=== PATIENT | female | born 1995 | race Caucasian/White ===

== ENCOUNTER → 2017-08-13 | Outpatient (CLI) | payer BC ==
--- NOTE | 2017-08-13 07:36 | US ---
EXAMINATION TYPE: US thyroid st tissue head/neck DATE OF EXAM: 08/13/2017 COMPARISON: NONE CLINICAL HISTORY: E01.0 THYROID ENLARGEMENT. Thyroid enlarged per doctor MEASUREMENTS: GLAND SIZE: Right Lobe: 5.1 x 2.1 x 2.0 cm Left Lobe: 4.9 x 2.4 x 2.0 cm Isthmus Thickness: 0.5 cm NODULES RIGHT: # of nodules measured on right: 0 LEFT: # of nodules measured on left:0 ISTHMUS: # of nodules measured within isthmus:0 Bilateral neck scanned, no evidence of lymphadenopathy. Bilateral thyroid lobes appear enlarged, heterogenous and hypervascular with no prominent masses or l esions seen. IMPRESSION: Heterogeneous hypervascular mildly enlarged thyroid without discrete nodule.
== END | disposition home or self-care (01) ==
LOC: RADUSWWP 07:01
PROVIDERS: ATTEND Obstetrics & Gynecology
DX: E04.9 Nontoxic goiter, unspecified (principal)
CPT/HCPCS: 76536

== ENCOUNTER 2018-01-06 22:02 | Inpatient (IN) | payer BC ==
[2018-01-06 22:49] LABS: Basophils % (A) 0 %; Eosinophils # (A) 0.1 k/uL (0-0.7); Eosinophils % (A) 1 %; HCT 33.2 % (34.0-46.0); HGB 11.3 gm/dL (11.4-16.0); Lymphocytes # (A) 1.8 k/uL (1.0-4.8); Lymphocytes % (A) 14 %; MCH 28.5 pg (25.0-35.0); MCV 83.9 fL (80.0-100.0); Mean Platelet Volume 8.1; Monocytes # (A) 0.5 k/uL (0-1.0); Monocytes % (A) 4 %; Neutrophils # (A) 10.3 k/uL (1.3-7.7); Neutrophils % (A) 80 %; Platelet Count 230 k/uL (150-450); Poikilocytosis Slight; RBC 3.95 m/uL (3.80-5.40); RDW 13.7 % (11.5-15.5)
[2018-01-06] MEDS ORDERED: ceFAZolin IN SWFI 2 GM/20 ML SYRINGE IVP ONE (23:03)
[2018-01-06] MEDS ORDERED: CITRIC ACID-SODIUM CITRATE 15 ML CUP PO ONE (23:03)
[2018-01-06] MEDS ORDERED: NALBUPHINE 10 MG/ML VIAL (10ML MDV) ONE (23:08)
[2018-01-06] MEDS ORDERED: ONDANSETRON 4 MG/2 ML VIAL ONE (23:08)
[2018-01-06] MEDS ORDERED: MORPHINE SULFATE (PF) 0.3 MG/0.3 ML SYR ONE (23:08)
[2018-01-06] MEDS ORDERED: KETOROLAC 30 MG/ML 1 ML VIAL ONE (23:08)
[2018-01-06] MEDS ORDERED: PHENYLEPHRINE-0.9% NACL SYG 1 MG/10 ML SYRINGE ONE (23:08)
[2018-01-06] MEDS ORDERED: DEXAMETHASONE SOD PHOS (MDV) 100 MG/10 ML VIAL ONE (23:08)
[2018-01-06] MEDS ORDERED: OXYTOCIN 10 UNIT/ML 1 ML VIAL ONE (23:08)
[2018-01-06] MEDS: LACTATED RINGERS 1,000 ML IV SCH (23:15)
[2018-01-06] MEDS ORDERED: diphenhydrAMINE 50 MG/ML 1 ML VIAL IVP PRN ×3 (23:35→23:56)
[2018-01-06] MEDS ORDERED: MORPHINE SULFATE 2 MG/ML SYRINGE IVP PRN (23:35)
[2018-01-06] MEDS ORDERED: NALOXONE 0.4 MG/ML 1 ML VIAL IV PRN (23:35)
[2018-01-06] MEDS ORDERED: ONDANSETRON 4 MG/2 ML VIAL IVP PRN (23:35)
[2018-01-06] MEDS ORDERED: OXYTOCIN 20 UNITS/1000 ML NS 1,000 ML IV SCH (23:45)
[2018-01-06] MEDS ORDERED: SIMETHICONE 80 MG CHEWABLE PO PRN (23:56)
[2018-01-06] MEDS ORDERED: diphenhydrAMINE 25 MG CAP PO PRN (23:56)
[2018-01-06] MEDS ORDERED: ZOLPIDEM 5 MG TAB PO PRN (23:56)
[2018-01-06] MEDS ORDERED: ACETAMINOPHEN TAB 325 MG TAB PO PRN (23:56)
[2018-01-06] MEDS ORDERED: LANOLIN CREAM 5 GM TUBE TOPICAL PRN (23:56)
[2018-01-06] MEDS ORDERED: METOCLOPRAMIDE 5 MG/ML 2 ML VIAL IVP PRN (23:56)
[2018-01-06] MEDS ORDERED: diphenhydrAMINE 50 MG CAP PO PRN (23:56)
--- NOTE | 2018-01-07 00:07 | P.HPOB ---
History of Present Illness H&P Date: 01/06/18 Chief Complaint: decreased movement 22 year old presents to triage at 34 weeks complaining of 1 day of decreased movement. She has only felt the baby move slightly all day today though he was moving normally yesterday. She is not jett and in no pain. No bleeding or loss of fluid. heart tones on the monitor read 130 and minimal variability but when listening it sounds much faster like in the 260's. I put the handheld ultrasound on the baby and saw the heart beating very quickly in the 260's. I discussed R/B/A of section with pt and her including risks of delivering a infant. Pt and her expressed understanding and consented to section. Review of Systems All systems: negative Constitutional: Denies chills, Denies fever Eyes: denies blurred vision, denies pain Ears, nose, mouth and throat: Denies headache, Denies sore throat Cardiovascular: Denies chest pain, Denies shortness of breath Respiratory: Denies cough Gastrointestinal: Denies abdominal pain, Denies diarrhea, Denies nausea, Denies vomiting Genitourinary: Denies dysuria, Denies hematuria Musculoskeletal: Denies myalgias Integumentary: Denies pruritus, Denies rash Neurological: Denies numbness, Denies weakness Psychiatric: Denies anxiety, Denies depression Endocrine: Denies fatigue, Denies weight change Past Medical History Past Medical History: Thyroid Disorder (goiter; no meds) Additional Past Medical History / Comment(s): ob history: this is her first and she had care with Dr Salinas. A+, abs neg. normal 1hr. uncomplicated . She was diagnosed with a goiter, we were watching her thyroid levels but she remained euthyroid, last checked at 28 weeks. History of Any Multi-Drug Resistant Organisms: None Reported Past Surgical History: No Surgical Hx Reported Smoking Status: Never smoker Medications and Allergies Home Medications Medication Instructions Recorded Confirmed Type Pnv,Calcium 72/Iron/Folic Acid 1 tab PO ONCE 01/06/18 01/06/18 History [ Plus Tablet] Allergies Allergy/AdvReac Type Severity Reaction Status Date / Time No Known Allergies Allergy Verified 01/06/18 22:12 Exam Osteopathic Statement: *. No significant issues noted on an osteopathic structural exam other than those noted in the History and Physical/Consult. Vital Signs Pulse Resp BP Pulse Ox 01/06/18 22:21 116 H 16 117/70 99 Intake and Output 01/06/18 01/06/18 01/07/18 14:59 22:59 06:59 Other: Weight 78.925 kg HEart: RRR Lungs: CTAB ABdomen: soft, nontender Extremties: neg josué's Results Result Diagrams: 01/06/18 22:35 Abnormal Lab Results - Last 24 Hours (Table) 01/06/18 Range/Units 22:35 WBC 13.0 H (3.8-10.6) k/uL Hgb 11.3 L (11.4-16.0) gm/dL Hct 33.2 L (34.0-46.0) % Neutrophils # 10.3 H (1.3-7.7) k/uL Assessment and Plan (1) Decreased movement Current Visit: Yes Status: Acute Code(s): O36.8190 - DECREASED MOVEMENTS, UNSP TRIMESTER, UNSP SNOMED Code(s): 274022055 (2) tachycardia affecting management of mother Current Visit: Yes Status: Acute Code(s): O76 - ABNLT IN HEART RATE AND RHYTHM COMP LABOR AND DELIVERY SNOMED Code(s): 6161626 Plan: 1. primary low transverse
[2018-01-07 00:12] VITALS: BMI 27.2
--- NOTE | 2018-01-07 00:15 | P.OP ---
Date of Procedure: 01/06/18 Preoperative Diagnosis: 1. at 34 weeks 2. Decreased Movement 3. tachycardia Postoperative Diagnosis: same Procedure(s) Performed: primary low transverse Anesthesia: spinal Surgeon: Shwetha Brooks Rotary Derrick Operator #1: Carlos A Bryant Estimated Blood Loss (ml): 800 IV fluids (ml): 500 Urine output (ml): 400 Pathology: other (placenta) Condition: stable Disposition: floor Indications for Procedure: 22 year old presented with decreased movement for 1 day to triage. heart tones were found to be tachycardic at 260 despite position changes and IV fluids. Informed consent was obtained for section. Operative Findings: viable male, Apgars pending; weight pending Description of Procedure: Patient was taken to the operating room where spinal anesthesia was found be adequate. She was prepped and draped in normal sterile fashion in dorsal supine position with a leftward tilt. Pfannenstiel skin incision was made the scalpel and carried through to the underlying layer of fascia with the scalpel. Fascia was incised in midline and carried bilaterally with the Holden scissors. The superior aspect of the fascial incision was grasped with Collbran clamps elevated and the underlying rectus muscles dissected off with the Holden's. Attention was then turned to inferior aspect of same incision which in a similar fashion was grasped tented up and the underlying rectus muscles dissected off with the Holden's. The rectus muscles were the midline and the peritoneum was identified tented up and entered sharply with the scalpel. The incision was extended superiorly and inferiorly with good visualization of the bladder. The bladder blade was inserted and the vesicouterine peritoneum was incised the Metzenbaums then carried bilaterally and bladder flap created digitally. A low transverse incision was then made on the uterus with the scalpel. This was carried bilaterally and digital manner. Infant's head delivered atraumatically, nose and mouth bulb suctioned, cord clamped and cut, handed off to waiting nurses. Apgars pending,weight pending. Placenta delivered manually, intact with three-vessel cord. The uterus is exteriorized and cleared of all clots and debris. The uterine incision was closed with 0 Vicryl in a running locked fashion. Second layer of the same sutures used in imbricating fashion to obtain excellent hemostasis. Bladder flap was then reapproximated using 2-0 Vicryl in a running fashion. Both ovaries and tubes appeared normal. The uterus was placed back into the abdomen. The peritoneum was reapproximated using 2-0 Vicryl in a running fashion. The muscles were reapproximated using 2-0 Vicryl in interrupted fashion. The fascia was reapproximated using 0 Vicryl in a running fashion. The subcutaneous tissues closed with 3-0 Vicryl running fashion. The skin was closed funmilayo. Patient tolerated the procedure well, sponge and instrument counts were correct times 2 and she was taken to the recovery room in stable condition.
--- NOTE | 2018-01-07 00:18 | P.MSEPDOC ---
Presenting Problems - Arrival Data Date of Arrival on Unit: 01/06/18 Time of Arrival on Unit: 22:00 Mode of Transport: Ambulatory Medical History - Information : 1 Para: 0 Term: 0 : 0 Abortions: Spontaneous or Elective: 0 Number of Living Children: 0 - Gestational Age Gestational Age by SONDRA (wks/days): 34 Weeks and 0 Days Review of Systems - Review of Systems Constitutional: No problems Breast: No problems ENT: No problems Cardiovascular: No problems Respiratory: No problems Gastrointestinal: No problems Genitourinary: No problems Musculoskeletal: No problems Neurological: No problems Skin: No problems Vital Signs - Temperature Temperature: 97.8 F Temperature Source: Oral - Pulse Right Brachial Pulse Rate: 95 Pulse Assessment Method: Automatic Cuff - Respirations Respiratory Rate: 18 Oxygen Delivery Method: Room Air O2 Sat by Pulse Oximetry: 100 - Blood Pressure Right Arm Blood Pressure: 95/54 Blood Pressure Mean: 67 Blood Pressure Source: Automatic Cuff Medical Screen Scoring (Pre) - Cervical Exam Dilation: Exam Deferred Effacement: Exam Deferred Membranes: Intact - Maternal Vital Signs Maternal Temperature: N/A Maternal Blood Pressure: N/A Signs of Preeclampsia: N/A Maternal Respirations: N/A - Pain Assessment Pain Scale Used: Numeric (1 - 10) Pain Intensity: 0 - Assessment Baseline FHR: 130 Heart Rate - NICHD Category: Category II (Indeterminate) = 3 NST: Non-reactive = 3 Position: N/A Station: N/A - Total Score Total Score (Pre): 6 I agree with the RN Medical Screening Exam: Yes Risk & Benefit of care provided described in d/c instruction: Yes Diagnosis: ABNLT IN HEART RATE AND RHYTHM COMP LABOR AND DELIVERY
[2018-01-07] MEDS: KETOROLAC 30 MG/ML 1 ML VIAL IVP PRN ×3 (08:03→21:51)
[2018-01-07] MEDS: SENNOSIDES-DOCUSATE SODIUM 1 EACH TAB PO SCH (08:04)
--- NOTE | 2018-01-07 08:41 | P.PN ---
Progress Note - Text Progress Note Date: 01/07/18 22-year-old female status post section postop day 1. Patient had Duramorph spinal. Today patient states that pain is a 3/10 in severity, acknowledges mild pruritus and facial area. No motor weakness no sensory deficits appreciated in the lower extremities, mild back discomfort, but overall doing well. Encourage her to ambulate as much as possible. Patient still for discharge home from an anesthetic perspective
[2018-01-07 09:53] LABS: Basophils % (A) 0 %; Eosinophils % (A) 0 %; HCT 28.9 % (34.0-46.0); Lymphocytes # (A) 1.3 k/uL (1.0-4.8); Lymphocytes % (A) 7 %; MCH 27.6 pg (25.0-35.0); MCHC 33.3 g/dL (31.0-37.0); MCV 82.9 fL (80.0-100.0); Mean Platelet Volume 8.6; Monocytes # (A) 0.9 k/uL (0-1.0); Monocytes % (A) 5 %; Neutrophils # (A) 16.4 k/uL (1.3-7.7); Neutrophils % (A) 88 %; Platelet Count 225 k/uL (150-450); Poikilocytosis Slight; RBC 3.48 m/uL (3.80-5.40); RDW 13.5 % (11.5-15.5); WBC 18.7 k/uL (3.8-10.6)
[2018-01-07 09:57] LABS: HGB 9.6 gm/dL (11.4-16.0)
[2018-01-07] MEDS: LACTATED RINGERS 1,000 ML IV SCH (14:28)
[2018-01-08] MEDS ORDERED: diphenhydrAMINE 50 MG/ML 1 ML VIAL ONE (01:30)
[2018-01-08 05:45] LABS: Basophils % (A) 0 %; Eosinophils # (A) 0.1 k/uL (0-0.7); Eosinophils % (A) 1 %; HCT 27.7 % (34.0-46.0); HGB 9.2 gm/dL (11.4-16.0); Lymphocytes # (A) 2.3 k/uL (1.0-4.8); Lymphocytes % (A) 24 %; MCH 28.1 pg (25.0-35.0); MCHC 33.2 g/dL (31.0-37.0); MCV 84.4 fL (80.0-100.0); Mean Platelet Volume 9.9; Monocytes # (A) 0.6 k/uL (0-1.0); Monocytes % (A) 6 %; Neutrophils # (A) 6.8 k/uL (1.3-7.7); Neutrophils % (A) 69 %; Platelet Count 176 k/uL (150-450); Poikilocytosis Slight; RBC 3.29 m/uL (3.80-5.40); RDW 13.8 % (11.5-15.5)
[2018-01-08] MEDS: IBUPROFEN 600 MG TAB PO PRN ×3 (06:12→20:52)
[2018-01-08] MEDS: HYDROcodone/APAP 7.5-325MG 1 EACH TAB PO PRN ×3 (08:53→22:59)
[2018-01-08] MEDS: SENNOSIDES-DOCUSATE SODIUM 1 EACH TAB PO SCH ×3 (09:24→20:51)
[2018-01-08] MEDS: LACTATED RINGERS 1,000 ML IV SCH ×11 (10:06→17:31)
--- NOTE | 2018-01-08 12:45 | P.PNOBGPC ---
Subjective - Subjective Principal diagnosis: Postop day 2 Interval history: Patient is seen and evaluated, she continues to have some dark red oozing from her incision or the midline. Is not coming out in any large quantities and therefore we'll debris apply a pressure bandage and see if we can get the bleeding to stop without having any other therapies. Overall her spirits are relatively good with her baby deep being at [facility]. She is able to ambulate, void and she is tolerating her diet. At this time she voices no other complaints. We'll make every effort to try and get her stable for discharge as soon as possible but she is aware she continues to have issues with her incision we may need to keep her longer. All the questions are answered for her at this time. Patient reports: Reports appetite normal, Reports voiding normally, Reports pain well controlled, Reports ambulating normally Objective - Vital Signs Latest vital signs: Vital Signs Temp Pulse Resp BP Pulse Ox 01/08/18 10:00 18 01/08/18 08:00 98.1 F 89 16 100/63 98 01/08/18 06:00 16 01/08/18 04:00 16 01/08/18 02:00 16 01/07/18 22:00 17 01/07/18 20:00 89 16 107/69 99 01/07/18 15:41 98.9 F 86 16 106/61 01/07/18 14:00 16 Intake and Output 01/07/18 01/08/18 01/08/18 22:59 06:59 14:59 Output Total 1150 Balance -1150 Output: Urine 1150 Other: # Voids 1 - Exam Lungs: bilateral: normal Chest: Normal S1, Normal S2 Extremities: Present: normal Abdomen: Present: normal appearance, soft. Absent: distention, tenderness Incision: Present: other (Small amount of bleeding from the center of incision) Uterus: Present: firm - Labs Labs: Abnormal Lab Results - Last 24 Hours (Table) 01/08/18 Range/Units 05:28 RBC 3.29 L (3.80-5.40) m/uL Hgb 9.2 L (11.4-16.0) gm/dL Hct 27.7 L (34.0-46.0) %
[2018-01-08 18:15] LABS: INR 0.9 (<1.2); Partial Thromboplastin Time 22.7 sec (22.0-30.0); Prothrombin Time 9.4 sec (9.0-12.0)
--- NOTE | 2018-01-08 19:41 | P.PN ---
Progress Note - Text Progress Note Date: 01/08/18 Sirisha is seen and evaluated again this evening. I was called to evaluate her as her incision has more bleeding. There is minimal active bleeding however she continues to form approximate 3 cm clot over her incision line of with bright red blood. This occurs over the course of anywhere from 40 1:55 hours and it is more disconcerting to her than problematic. There is no active flow of bleeding when we take the dressing off there is no pulsation of blood there is no significant quantity of blood coming through the incision line but she continues to have this slightly more than losing of her incision. We did discuss the possibility of going to surgery and removing the funmilayo to evaluate and see if we can figure out where the bleeding is coming from exactly and reclosed wound, she is not very interested in this at this time which is very understandable but other than applying heavy pressure dressing I'm at a loss cystoscopy what else we can really do because we cannot really identify her see where the blood is coming from in 1 week take the dressing off there is no significant amount of bleeding that is coming between the staple lines. I did readdress the incision and applied firm pressure dressing to try and obtain hemostasis. She is overall stable at this time.
[2018-01-09] MEDS: IBUPROFEN 600 MG TAB PO PRN ×2 (04:45→11:02)
[2018-01-09] MEDS: HYDROcodone/APAP 7.5-325MG 1 EACH TAB PO PRN ×2 (07:53→14:47)
[2018-01-09] MEDS: SENNOSIDES-DOCUSATE SODIUM 1 EACH TAB PO SCH (07:53)
[2018-01-09 08:16] VITALS: BP 103/69; PULSE 85; RESP 16; TEMP 97.9
--- NOTE | 2018-01-09 09:33 | P.DS ---
Providers Date of admission: 01/06/18 23:10 Expected date of discharge: 01/09/18 Attending physician: Ford Salinas Primary care physician: Stated None Hospital Course: Overall Sirisha is doing very well. She is ambulating and she is voiding. She tolerates her diet. Her incision which is been using for last 2-3 days since having section did not appear to ooze through the night, however there is a strong pressure dressing still in place. We'll plan to leave that in place and she will follow-up with me tomorrow morning with plan for removal and to evaluate for staple removal. I did warn her that she may need to have the funmilayo stay in place for a few more days as I'm concerned maybe a blood clot underneath the incision line which could result in her incision opening and may be safer just believed in funmilayo in place for a full week. Otherwise she is overall doing well. She would like to be discharged today so that she can go and see her baby at [facility]. Vital signs are stable and afebrile. Heart regular, lungs clear, extremities are without pain. Abdomen soft and she has bowel sounds. Assessment postop day 3. Plan discharged home follow up with me tomorrow morning. Patient Condition at Discharge: Good Plan - Discharge Summary New Discharge Prescriptions: New HYDROcodone/APAP 7.5-325MG [Edelstein 7.5-325] 1 tab PO Q4H PRN 3 Days #18 tab PRN Reason: Pain Ibuprofen [Motrin] 600 mg PO Q6HR PRN #30 tab PRN Reason: Mild Pain Or Fever >= 100.5 No Action Pnv,Calcium 72/Iron/Folic Acid [ Plus Tablet] 1 tab PO ONCE Discharge Medication List Pnv,Calcium 72/Iron/Folic Acid [ Plus Tablet] 1 tab PO ONCE 01/06/18 [ History] HYDROcodone/APAP 7.5-325MG [Edelstein 7.5-325] 1 tab PO Q4H PRN 3 Days #18 tab 01/07 [Rx] Ibuprofen [Motrin] 600 mg PO Q6HR PRN #30 tab 01/07/18 [Rx] Follow up Appointment(s)/Referral(s): Ford Salinas DO [Doctor of Osteopathic Medicine] - 01/09/18 Activity/Diet/Wound Care/Special Instructions: No heavy lifting, limit stairs and driving and pelvic rest. If any high temperatures, heavy bleeding, or severe pain call my office Discharge Disposition: HOME SELF-CARE
== END 2018-01-09 15:24 | disposition home or self-care (01) | DRG 765 ==
LOC: FBPOP 22:02 → 4FBP 23:10
PROVIDERS: ADMIT Obstetrics & Gynecology; ATTEND Obstetrics & Gynecology
PROC: 10D00Z1 Extraction of Products of Conception, Low, Open Approach (ICD-10-PCS; principal; 2018-01-07)
DX: O36.8130 Decreased fetal movements, third trimester, not applicable or unspecified (principal); L76.22 Postprocedural hemorrhage of skin and subcutaneous tissue following other procedure; Z3A.34 34 weeks gestation of pregnancy; Z37.0 Single live birth; O76 Abnormality in fetal heart rate and rhythm complicating labor and delivery; L29.9 Pruritus, unspecified
CPT/HCPCS: 59025; 84443; 85025; 85610; 85730; 88307; 96360; 99213

== ENCOUNTER → 2018-08-19 | Outpatient (CLI) | payer BC ==
--- NOTE | 2018-08-19 10:09 | US ---
EXAMINATION TYPE: US thyroid st tissue head/neck DATE OF EXAM: 08/19/2018 COMPARISON: 08/13/2017 CLINICAL HISTORY: E04.9 GOITER. GLAND SIZE: Right Lobe: 5.6 x 2.2 x 2.3 cm Overall Parenchyma: heterogenous Left Lobe: 5.6 x 2.2 x 2.5 cm Overall Parenchyma: heterogeneous Isthmus Thickness: 0.5 cm NODULES RIGHT: # of nodules measured on right: 0 LEFT: # of nodules measured on left: 0 ISTHMUS: # of nodules measured in the isthmus: 0 Bilateral enlarged, diffusely heterogeneous and hypervascular thyroid lobes. Bilateral neck scanned, no evidence of lymphadenopathy. IMPRESSION: Enlarged and diffusely hypervascular heterogenous thyroid gland. Lymphocytic infiltration in chronic thyroiditis should be considered. Thank you
== END | disposition home or self-care (01) ==
LOC: RADUSWWP 06:55
PROVIDERS: ATTEND Family Medicine
DX: E06.3 Autoimmune thyroiditis (principal); E04.9 Nontoxic goiter, unspecified
CPT/HCPCS: 76536

== ENCOUNTER 2019-01-29 15:11 | Emergency (ER) | payer BC ==
[2019-01-29 16:15] LABS: Basophils % (A) 0 %; Eosinophils # (A) 0.1 k/uL (0-0.7); Eosinophils % (A) 1 %; HCT 40.3 % (34.0-46.0); Lymphocytes # (A) 0.6 k/uL (1.0-4.8); Lymphocytes % (A) 6 %; MCH 27.2 pg (25.0-35.0); MCHC 32.2 g/dL (31.0-37.0); MCV 84.4 fL (80.0-100.0); Mean Platelet Volume 8.2; Monocytes # (A) 0.3 k/uL (0-1.0); Monocytes % (A) 3 %; Neutrophils # (A) 8.3 k/uL (1.3-7.7); Neutrophils % (A) 89 %; Platelet Count 171 k/uL (150-450); RBC 4.78 m/uL (3.80-5.40); RDW 13.8 % (11.5-15.5); WBC 9.3 k/uL (3.8-10.6)
[2019-01-29 16:23] LABS: ALT 12 U/L (9-52); AST 25 U/L (14-36); African American GFR (CKD) >90 (>60 ml/min/1.73 sqM); Albumin 4.4 g/dL (3.5-5.0); Alkaline Phosphatase 46 U/L (38-126); Anion Gap 12 mmol/L; Blood Urea Nitrogen 9 mg/dL (7-17); Carbon Dioxide 20 mmol/L (22-30); Chloride 107 mmol/L (98-107); Creatine Kinase 72 U/L (30-135); Glucose 114 mg/dL (74-99); Magnesium 1.7 mg/dL (1.6-2.3); Non-African American GFR(CKD) >90 (>60 ml/min/1.73 sqM); Potassium 3.9 mmol/L (3.5-5.1); Sodium 139 mmol/L (137-145); Total Bilirubin 1.2 mg/dL (0.2-1.3)
[2019-01-29 16:24] LABS: Amorphous Sediment,Urine Rare /hpf; Appearance,Urine Clear (Clear); Bilirubin,Urine Negative (Negative); Blood,Urine Moderate (Negative); Color,Urine Yellow; Glucose,Urine (UA) Negative (Negative); Ketones,Urine Negative (Negative); Leukocyte Esterase,Urine Negative (Negative); Mucus,Urine Moderate /hpf; Nitrite,Urine Negative (Negative); PH, Urine 5.5 (5.0-8.0); Protein,Urine Negative (Negative); RBC,Urine 1 /hpf (0-5); Specific Gravity,Urine 1.007 (1.001-1.035); Squamous Epithelial Cell,Urine 3 /hpf (0-4); Urobilinogen,Urine <2.0 mg/dL (<2.0); WBC,Urine 1 /hpf (0-5)
[2019-01-29 16:35] LABS: Partial Thromboplastin Time 25.7 sec (22.0-30.0)
[2019-01-29 16:38] LABS: D-Dimer 1.27 mg/L FEU (<0.60)
--- NOTE | 2019-01-29 17:08 | XR ---
EXAMINATION: XR chest 2V DATE AND TIME: 01/29/2019 4:47 PM CLINICAL INDICATION: PHH; Chest Pain TECHNIQUE: Departmental protocol COMPARISON: None FINDINGS: The lungs are clear. The pleural spaces are negative. The cardiac silhouette is not enlarged. The remainder of the mediastinal silhouette is unremarkable. The skeletal structures and soft tissues are negative for acute findings. IMPRESSION: NO ACUTE PROCESS.
--- NOTE | 2019-01-29 18:21 | CT ---
EXAMINATION TYPE: CT angio chest with contrast and with 3-D reconstruction renderings DATE OF EXAM: 01/29/2019 5:32 PM COMPARISON: None HISTORY: Chest pressure, weakness. CT DLP: 245.9 mGycm Automated exposure control for dose reduction was used. CONTRAST: CTA scan of the thorax is performed with IV Contrast, patient injected with 77 mL of Isovue 370, pulmonary embolism protocol. Three-D reconstructions. FINDINGS: AIRWAYS / LUNGS: Clear and well expanded. PLEURAL SPACES: Negative. MEDIASTINUM/CINDI: Pulmonary arterial tree is well-opacified and is negative for filling defects to simeon ggest pulmonary embolism. There is no acute aortic pathology. No cardiomegaly or pericardial effusion . No adenopathy. SKELETAL STRUCTURES: No acute process. OTHER: 1) There is mild splenomegaly, with the spleen measuring approximately 14 x 13 x 7 cm. No focal lytic lesions. 2) 6 x 6 cm incompletely visualized LUQ soft tissue density between the stomach and the left kidney n oted. This finding could represent unopacified stomach and jejunal loops, its location adjacent to th e large spleen, and the fact that the bobbi hepatis is indistinct, leads to the request for abdominal pelvic CT imaging with oral contrast and 50 mL IV contrast. IMPRESSION: CHEST: No acute process. UPPER ABDOMEN: Splenomegaly, indistinct bobbi hepatis, and left upper quadrant soft tissue density as discussed.
[2019-01-29] MEDS ORDERED: IOPAMIDOL CONTRAST (ORAL USE) VIAL PO PRN (18:23)
--- NOTE | 2019-01-29 18:54 | ED ---
Chest Pain HPI - General Chief Complaint: Chest Pain Stated Complaint: Chest pressure, weakness Time Seen by Provider: 01/29/19 15:48 Source: patient Mode of arrival: wheelchair Limitations: no limitations - History of Present Illness Initial Comments: This is a 23-year-old female who presents with complaints of chest pain she also said her heart rate was elevated. She is not familiar with her being told that she had a elevated heart rate before. She denies any shortness of breath cough fevers chills nausea vomiting sweats does states she had a recent upper respiratory infection. She does states she felt sudden chest tightness some fatigue and chills. She's had no cough or phlegm production no dysuria no other symptoms she is feeling better now except for the perceived elevated heart rate patient does states she takes control pills. 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 MD Complaint: chest pain - Related Data Home Medications Medication Instructions Recorded Confirmed Falmina Control 1 tab PO HS 01/29/19 01/29/19 Levothyroxine Sodium [Synthroid] 88 mcg PO DAILY 01/29/19 01/29/19 Previous Rx's Medication Instructions Recorded Magnesium 200 mg PO DAILY #10 tablet 01/29/19 Potassium Chloride ER [K-Dur 20] 20 meq PO DAILY #10 tab 01/29/19 Allergies Allergy/AdvReac Type Severity Reaction Status Date / Time No Known Allergies Allergy Verified 01/29/19 15:42 Review of Systems ROS Statement: Those systems with pertinent positive or pertinent negative responses have been documented in the HPI. ROS Other: All systems not noted in ROS Statement are negative. EKG Findings - EKG Results: EKG: interpreted by KENDRICK (Sinus tachycardia rate 119. 01 32 QRS 92 QT since QTC 312/[address]-T wave changes) Past Medical History Past Medical History: Thyroid Disorder Additional Past Medical History / Comment(s): ob history: this is her first and she had care with Dr Salinas. A+, abs neg. normal 1hr. uncomplicated . She was diagnosed with a goiter, we were watching her thyroid levels but she remained euthyroid, last checked at 28 weeks. History of Any Multi-Drug Resistant Organisms: None Reported Past Surgical History: No Surgical Hx Reported Past Anesthesia/Blood Transfusion Reactions: No Reported Reaction Past Psychological History: No Psychological Hx Reported Smoking Status: Never smoker - Past Family History Mother Family Medical History: Cancer General Exam - General Exam Comments Initial Comments: This is a well-developed well-nourished awake alert oriented x3 female Limitations: no limitations General appearance: alert, in no apparent distress Head exam: Present: atraumatic, normocephalic, normal inspection Eye exam: Present: normal appearance, PERRL, EOMI. Absent: scleral icterus, conjunctival injection, periorbital swelling ENT exam: Present: normal exam, mucous membranes moist Neck exam: Present: other (Patient does demonstrate evidence of a goiter). Absent: tenderness, meningismus, lymphadenopathy Respiratory exam: Present: normal lung sounds bilaterally. Absent: respiratory distress, wheezes, rales, rhonchi, stridor Cardiovascular Exam: Present: normal rhythm, tachycardia, normal heart sounds. Absent: systolic murmur, diastolic murmur, rubs, gallop, clicks GI/Abdominal exam: Present: soft, normal bowel sounds. Absent: distended, tenderness, guarding, rebound, rigid Extremities exam: Present: normal inspection, full ROM, normal capillary refill. Absent: tenderness, pedal edema, joint swelling, calf tenderness Back exam: Present: normal inspection Neurological exam: Present: alert, oriented X3, CN II-XII intact Psychiatric exam: Present: normal affect, normal mood Skin exam: Present: warm, dry, intact, normal color. Absent: rash Course Vital Signs 01/29/19 01/29/19 01/29/19 15:12 16:00 16:30 Temperature 98.9 F Pulse Rate 76 123 H 111 H Pulse Rate [ 112 H Apical] Respiratory 16 20 20 Rate Blood Pressure 117/74 114/72 113/69 O2 Sat by Pulse 99 98 98 Oximetry 01/29/19 01/29/19 01/29/19 17:00 17:30 18:00 Temperature Pulse Rate 112 H 113 H 108 H Pulse Rate [ Apical] Respiratory 21 15 14 Rate Blood Pressure 111/70 113/85 113/72 O2 Sat by Pulse 98 100 99 Oximetry 01/29/19 01/29/19 01/29/19 18:30 19:00 19:30 Temperature Pulse Rate 113 H 100 105 H Pulse Rate [ Apical] Respiratory 20 18 20 Rate Blood Pressure 115/75 116/77 114/78 O2 Sat by Pulse 98 99 99 Oximetry Chest Pain MDM - MDM Review the imaging and reports no acute findings other than incidental finding of a splenic bleed. I did discuss findings with patient family members prese ntation is consistent with a vasovagal episode and dehydration. She will be discharged I did recommend we increase her potassium and magnesium levels to get supplements. She is a follow-up with her doctor return when necessary Disposition Clinical Impression: Dehydration, Vasovagal episode, Tachycardia, Atypical chest pain Disposition: HOME SELF-CARE Condition: Good Instructions (If sedation given, give patient instructions): Chest Pain (ED), Dehydration (ED) Prescriptions: Potassium Chloride ER [K-Dur 20] 20 meq PO DAILY #10 tab Magnesium 200 mg PO DAILY #10 tablet Is patient prescribed a controlled substance at d/c from ED?: No Referrals: Sukhjinder Leggett DO [Primary Care Provider] - 1-2 days
--- NOTE | 2019-01-29 20:02 | CT ---
EXAMINATION TYPE: CT abdomen pelvis w con DATE OF EXAM: 01/29/2019 COMPARISON: Chest CTA earlier today. HISTORY: Abnormal findings on prior CT CT DLP: 626.4 mGycm Automated exposure control for dose reduction was used. TECHNIQUE: Helical acquisition of images was performed from the lung bases through the pelvis. CONTRAST: Performed with Oral Contrast and with IV Contrast, patient injected with 50 mL of Isovue 30 0. FINDINGS: LIVER/GB: No significant abnormality is appreciated. PANCREAS: No significant abnormality is seen. SPLEEN: The spleen measures 14 x 13 x 7 cm. No focal splenic lesions. ADRENALS: No significant abnormality is seen. KIDNEYS: No significant abnormality is seen. PERITONEAL CAVITY: No pneumoperitoneum or peritoneal fluid. RETROPERITONEAL ADENOPATHY: None visualized REPRODUCTIVE ORGANS: No significant abnormality is seen URINARY BLADDER: No significant abnormality is seen. PELVIC ADENOPATHY: None visualized. OSSEOUS STRUCTURES: No significant abnormality is seen. BOWEL: No acute process. There is contrast opacification of the stomach and duodenum and jejunal bow el loops. There is also contrast opacification of the proximal ileum. OTHER: No acute vascular findings. IMPRESSION: MILD SPLENOMEGALY; NO OTHER FINDINGS.
[2019-01-29] MEDS ORDERED: SODIUM CHLORIDE 0.9% 500 ML 500 ML IV STA (20:21)
[2019-01-29 21:37] VITALS: BP 98/68; PULSE 97; RESP 18; TEMP 98
--- NOTE | 2019-02-02 22:52 | ED ---
Medical Decision Making - Medical Decision Making Correction to a dragon air on page [id number] statement on the MDM states review of imaging and reports no acute findings other than incidental finding of a splenic bleed this should read splenomegaly - Lab Data Result diagrams: 01/29/19 16:00 01/29/19 15:46 Lab Results 01/29/19 01/29/19 01/29/19 Range/Units 15:46 15:46 15:46 WBC (3.8-10.6) k/uL RBC (3.80-5.40) m/uL Hgb (11.4-16.0) gm/dL Hct (34.0-46.0) % MCV (80.0-100.0) fL MCH (25.0-35.0) pg MCHC (31.0-37.0) g/dL RDW (11.5-15.5) % Plt Count (150-450) k/uL Neutrophils % % Lymphocytes % % Monocytes % % Eosinophils % % Basophils % % Neutrophils # (1.3-7.7) k/uL Lymphocytes # (1.0-4.8) k/uL Monocytes # (0-1.0) k/uL Eosinophils # (0-0.7) k/uL Basophils # (0-0.2) k/uL PT (9.0-12.0) sec INR (<1.2) APTT (22.0-30.0) sec D-Dimer (<0.60) mg/L FEU Sodium 139 (137-145) mmol/L Potassium 3.9 (3.5-5.1) mmol/L Chloride 107 (98-107) mmol/L Carbon Dioxide 20 L (22-30) mmol/L Anion Gap 12 mmol/L BUN 9 (7-17) mg/dL Creatinine 0.61 (0.52-1.04) mg/dL Est GFR (CKD-EPI)AfAm >90 (>60 ml/min/1.73 sqM) Est GFR (CKD-EPI)NonAf >90 (>60 ml/min/1.73 sqM) Glucose 114 H (74-99) mg/dL Calcium 9.0 (8.4-10.2) mg/dL Magnesium 1.7 (1.6-2.3) mg/dL Total Bilirubin 1.2 (0.2-1.3) mg/dL AST 25 (14-36) U/L ALT 12 (9-52) U/L Alkaline Phosphatase 46 (38-126) U/L Creatine Kinase 72 (30-135) U/L Troponin I (0.000-0.034) ng/mL NT-Pro-B Natriuret Pep pg/mL Total Protein 7.0 (6.3-8.2) g/dL Albumin 4.4 (3.5-5.0) g/dL Lipase 41 (23-300) U/L TSH 0.924 (0.465-4.680) mIU/L Urine Color Urine Appearance (Clear) Urine pH (5.0-8.0) Ur Specific Mather (1.001-1.035) Urine Protein (Negative) Urine Glucose (UA) (Negative) Urine Ketones (Negative) Urine Blood (Negative) Urine Nitrite (Negative) Urine Bilirubin (Negative) Urine Urobilinogen (<2.0) mg/dL Ur Leukocyte Esterase (Negative) Urine RBC (0-5) /hpf Urine WBC (0-5) /hpf Ur Squamous Epith Cells (0-4) /hpf Amorphous Sediment (None) /hpf Urine Mucus (None) /hpf Urine HCG, Qual (Not Detectd) Heterophile Antibody Negative (Negative) 01/29/19 01/29/19 01/29/19 Range/Units 16:00 16:00 16:00 WBC 9.3 (3.8-10.6) k/uL RBC 4.78 (3.80-5.40) m/uL Hgb 13.0 (11.4-16.0) gm/dL Hct 40.3 (34.0-46.0) % MCV 84.4 (80.0-100.0) fL MCH 27.2 (25.0-35.0) pg MCHC 32.2 (31.0-37.0) g/dL RDW 13.8 (11.5-15.5) % Plt Count 171 (150-450) k/uL Neutrophils % 89 % Lymphocytes % 6 % Monocytes % 3 % Eosinophils % 1 % Basophils % 0 % Neutrophils # 8.3 H (1.3-7.7) k/uL Lymphocytes # 0.6 L (1.0-4.8) k/uL Monocytes # 0.3 (0-1.0) k/uL Eosinophils # 0.1 (0-0.7) k/uL Basophils # 0.0 (0-0.2) k/uL PT 11.0 (9.0-12.0) sec INR 1.0 (<1.2) APTT 25.7 (22.0-30.0) sec D-Dimer 1.27 H (<0.60) mg/L FEU Sodium (137-145) mmol/L Potassium (3.5-5.1) mmol/L Chloride (98-107) mmol/L Carbon Dioxide (22-30) mmol/L Anion Gap mmol/L BUN (7-17) mg/dL Creatinine (0.52-1.04) mg/dL Est GFR (CKD-EPI)AfAm (>60 ml/min/1.73 sqM) Est GFR (CKD-EPI)NonAf (>60 ml/min/1.73 sqM) Glucose (74-99) mg/dL Calcium (8.4-10.2) mg/dL Magnesium (1.6-2.3) mg/dL Total Bilirubin (0.2-1.3) mg/dL AST (14-36) U/L ALT (9-52) U/L Alkaline Phosphatase (38-126) U/L Creatine Kinase (30-135) U/L Troponin I (0.000-0.034) ng/mL NT-Pro-B Natriuret Pep 61 pg/mL Total Protein (6.3-8.2) g/dL Albumin (3.5-5.0) g/dL Lipase (23-300) U/L TSH (0.465-4.680) mIU/L Urine Color Urine Appearance (Clear) Urine pH (5.0-8.0) Ur Specific Mather (1.001-1.035) Urine Protein (Negative) Urine Glucose (UA) (Negative) Urine Ketones (Negative) Urine Blood (Negative) Urine Nitrite (Negative) Urine Bilirubin (Negative) Urine Urobilinogen (<2.0) mg/dL Ur Leukocyte Esterase (Negative) Urine RBC (0-5) /hpf Urine WBC (0-5) /hpf Ur Squamous Epith Cells (0-4) /hpf Amorphous Sediment (None) /hpf Urine Mucus (None) /hpf Urine HCG, Qual (Not Detectd) Heterophile Antibody (Negative) 01/29/19 01/29/19 01/29/19 Range/Units 16:00 16:04 16:04 WBC (3.8-10.6) k/uL RBC (3.80-5.40) m/uL Hgb (11.4-16.0) gm/dL Hct (34.0-46.0) % MCV (80.0-100.0) fL MCH (25.0-35.0) pg MCHC (31.0-37.0) g/dL RDW (11.5-15.5) % Plt Count (150-450) k/uL Neutrophils % % Lymphocytes % % Monocytes % % Eosinophils % % Basophils % % Neutrophils # (1.3-7.7) k/uL Lymphocytes # (1.0-4.8) k/uL Monocytes # (0-1.0) k/uL Eosinophils # (0-0.7) k/uL Basophils # (0-0.2) k/uL PT (9.0-12.0) sec INR (<1.2) APTT (22.0-30.0) sec D-Dimer (<0.60) mg/L FEU Sodium (137-145) mmol/L Potassium (3.5-5.1) mmol/L Chloride (98-107) mmol/L Carbon Dioxide (22-30) mmol/L Anion Gap mmol/L BUN (7-17) mg/dL Creatinine (0.52-1.04) mg/dL Est GFR (CKD-EPI)AfAm (>60 ml/min/1.73 sqM) Est GFR (CKD-EPI)NonAf (>60 ml/min/1.73 sqM) Glucose (74-99) mg/dL Calcium (8.4-10.2) mg/dL Magnesium (1.6-2.3) mg/dL Total Bilirubin (0.2-1.3) mg/dL AST (14-36) U/L ALT (9-52) U/L Alkaline Phosphatase (38-126) U/L Creatine Kinase (30-135) U/L Troponin I <0.012 (0.000-0.034) ng/mL NT-Pro-B Natriuret Pep pg/mL Total Protein (6.3-8.2) g/dL Albumin (3.5-5.0) g/dL Lipase (23-300) U/L TSH (0.465-4.680) mIU/L Urine Color Yellow Urine Appearance Clear (Clear) Urine pH 5.5 (5.0-8.0) Ur Specific Mather 1.007 (1.001-1.035) Urine Protein Negative (Negative) Urine Glucose (UA) Negative (Negative) Urine Ketones Negative (Negative) Urine Blood Moderate H (Negative) Urine Nitrite Negative (Negative) Urine Bilirubin Negative (Negative) Urine Urobilinogen <2.0 (<2.0) mg/dL Ur Leukocyte Esterase Negative (Negative) Urine RBC 1 (0-5) /hpf Urine WBC 1 (0-5) /hpf Ur Squamous Epith Cells 3 (0-4) /hpf Amorphous Sediment Rare H (None) /hpf Urine Mucus Moderate H (None) /hpf Urine HCG, Qual Not Detected (Not Detectd) Heterophile Antibody (Negative) Disposition Clinical Impression: Dehydration, Vasovagal episode, Tachycardia, Atypical chest pain Disposition: HOME SELF-CARE Condition: Good Instructions (If sedation given, give patient instructions): Chest Pain (ED), Dehydration (ED) Prescriptions: Potassium Chloride ER [K-Dur 20] 20 meq PO DAILY #10 tab Magnesium 200 mg PO DAILY #10 tablet Is patient prescribed a controlled substance at d/c from ED?: No Referrals: Sukhjinder Leggett DO [Primary Care Provider] - 1-2 days
== END 2019-01-29 21:00 | disposition home or self-care (01) ==
LOC: EC 15:11
DX: E86.0 Dehydration (principal); R55 Syncope and collapse; R07.89 Other chest pain; R00.0 Tachycardia, unspecified; E06.3 Autoimmune thyroiditis; Z79.890 Hormone replacement therapy; Z79.3 Long term (current) use of hormonal contraceptives
CPT/HCPCS: 36415; 93005; 85379; 83880; 80053; 84443; 82550; 83690; 83735; 84484; 85025; 85610; 85730; 86308; 81001; 81025; 71046; 71275; 74177; 99285; 96360; Q9967 ×2

== ENCOUNTER → 2021-02-20 | Outpatient (CLI) | payer BC ==
[2021-02-20 12:16] LABS: Glucose 3 Hour, Gest 112 mg/dL
== END | disposition home or self-care (01) ==
LOC: LABWHC1 07:38
PROVIDERS: ATTEND Obstetrics & Gynecology
DX: R73.02 Impaired glucose tolerance (oral) (principal)
CPT/HCPCS: 36415; 82951; 82952

== ENCOUNTER → 2024-07-07 | Outpatient (CLI) | payer BC ==
--- NOTE | 2024-07-08 07:21 | US ---
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 FINDINGS: GLAND SIZE: Right Lobe: 6.1x2.3x2.1 cm Overall Parenchyma: heterogeneous Left Lobe: 5.6x2.2x2.9 cm Overall Parenchyma: heterogeneous Isthmus Thickness: 0.4 cm Hyperemic thyroid gland parenchyma. NODULES RIGHT: # of nodules measured on right: 0 LEFT: # of nodules measured on left: 1 1. 1.4 X 0.9 x 1.4 cm, lower lateral, solid or almost completely solid, hyperechoic TR 3 nodule, wh ich is wider than tall, with smooth margins, without echogenic foci. I see previously. ISTHMUS: # of nodules measured in the isthmus: 0 [employer] notes: Bilateral neck scanned, evidence of lymphadenopathy, largest lymph node measures 1.6x0.8x0.8cm on the right and 1.7x0.6x1.2cm on the left. IMPRESSION: 1. Thyromegaly with diffuse heterogeneous glandular parenchyma with hyperemia. Consider diffuse thyro iditis such as Graves' disease or Davon's. 2. Solitary 1.4 cm TR3 nodule in the left lobe not seen previously. Follow-up can be performed. FNA i f it reaches 2.5 cm. 3. A few mildly thickened and now enlarged to borderline enlarged lymph nodes along both sides of the neck probably reactive/post inflammatory. Measuring up to 1.2 cm short axis. Probably reactive/post inflammatory. Recommend 6-8 week follow-up ultrasound to reassess. 2017 ACR TI-RADS LEVEL: *Highest TI-RADS level nodule reported [email or web address] [facility], , 07/08/2024 7:19 AM
== END | disposition home or self-care (01) ==
LOC: RADUSWWP 15:52
PROVIDERS: ATTEND Internal Medicine
DX: E01.0 Iodine-deficiency related diffuse (endemic) goiter (principal); R59.0 Localized enlarged lymph nodes; E05.00 Thyrotoxicosis with diffuse goiter without thyrotoxic crisis or storm
CPT/HCPCS: 76536